=== PATIENT | male | born 1935 | race Caucasian/White ===

== ENCOUNTER 2017-11-22 09:31 | Emergency (ER) | payer OTHER ==
[~2017-11-22] VITALS: Ht 162.6 cm; Wt 65.3 kg
[~2017-11-22 09:31] MED LIST: ALBUTEROL2.5 MG/3 M IH; AMMONIUM LACTA225 GM TP; ASPIRIN EC325 M1 PO; CARVEDILOL6.25 MG; CELEXA 10 MG TA10 MG PO; COLACE100 MG PO; FOLIC ACID1 MG PO; KEFLEX500 MG PO; METHADONE HCL 110 M1 PO; NEURONTIN 300300 M1 PO; OMEPRAZOLE 20 M20 MG PO; SIMVASTATIN10 MG PO; VENTOLIN HFA 1818 GM INH
[2017-11-22] MEDS ORDERED: ZOLOFT50 MG PO (09:47)
[2017-11-22] MEDS ORDERED: FLOMAX0.4 MG PO (09:47)
[2017-11-22] MEDS ORDERED: HYDROCODONE-AP1 EAC6 PO (09:47)
[2017-11-22] MEDS ORDERED: DOXYCYCLINE 10100 MG PO (09:47)
[2017-11-22] MEDS ORDERED: SANTYL OINTMENT30 G1 TOP (09:48)
[2017-11-22] MEDS ORDERED: PROSCAR 5MG TABL5 MG PO (09:48)
[2017-11-22] MEDS ORDERED: PULMICORT0.5 MG/22 INH (09:49)
[2017-11-22] MEDS ORDERED: MEPILEX1 EACH TOP (09:49)
[2017-11-22] MEDS ORDERED: ERGOCALCIF50000 UNIT PO (09:50)
[2017-11-22] MEDS ORDERED: UNICOMPLEX M TA1 TA1 PO (09:50)
[2017-11-22] MEDS ORDERED: ACETAMINOPHEN325 M3 PO (09:50)
[2017-11-22] MEDS ORDERED: LASIX 20 MG TAB20 MG PO (09:51)
[2017-11-22] MEDS ORDERED: AMLODIPINE BESY10 MG PO (09:51)
[2017-11-22] MEDS ORDERED: MIRALAX17 GM PO (09:51)
[2017-11-22 09:55] LABS: ABSOLUTE BASOPHILS 0.1 thou/uL (0.0-0.2); ABSOLUTE EOSINOPHILS 0.3 thou/uL (0.0-0.7); ABSOLUTE LYMPHOCYTES 1.8 thou/uL (0.8-5.3); ABSOLUTE MONOCYTES 0.6 thou/uL (0.0-1.2); ABSOLUTE NEUTROPHILS 3.8 thou/uL (1.6-8.1); BASOPHILS 0.8 %; EOSINOPHILS 4.3 %; HEMATOCRIT 32.3 % (42.0-52.0); HEMOGLOBIN 10.6 gm/dL (14.0-18.0); LYMPHOCYTES 27.6 %; MCH 29.4 pg (26.0-34.0); MCV 89.3 fL (80.0-100.0); MONOCYTES 8.7 %; MPV 6.4 fl. (7.2-11.1); NUCLEATED RBCS 0 /100WBC; PLATELET COUNT* 236 thou/uL (150-400); POLYS 58.6 %; RBC 3.61 mil/uL (4.50-6.00); RDW-CV 14.6 % (10.5-14.5); WBC 6.4 thou/uL (4.0-11.0)
[2017-11-22 10:02] LABS: POC CA IONIZED 3.7 mg/dL (4.5-5.3); POC CREATININE 1.1 mg/dL (0.6-1.3); POC HEMOGLOBIN 10.5 g/dL (12.0-17.0); POC POTASSIUM 5.6 mmol/L (3.5-4.9)
[2017-11-22 10:09] LABS: ANION GAP 8 mmol/L (7-16); BUN 24 mg/dL (7-18); CALCIUM 8.7 mg/dL (8.5-10.1); CHLORIDE 100 mmol/L (98-107); CO2 29 mmol/L (21-32); CREATININE 1.3 mg/dL (0.6-1.3); GLUCOSE 111 mg/dL (70-99); POTASSIUM 4.7 mmol/L (3.5-5.1); SODIUM 137 mmol/L (136-145)
[2017-11-22 10:19] LABS: ALBUMIN 3.2 g/dL (3.4-5.0); ALKALINE PHOSPHATASE 75 U/L (46-116); SGOT 27 U/L (15-37); SGPT 16 U/L (30-65); TOTAL BILIRUBIN 0.4 mg/dL (<0.1-1.0); TOTAL PROTEIN 7.5 g/dL (6.4-8.2); TROPONIN-I LEVEL <0.06 ng/mL (<0.06)
[2017-11-22 10:45] LABS: APTT 25.4 Seconds (25.0-31.3); INR 1.1; PROTIME 10.8 Seconds (9.20-11.50)
[2017-11-22 13:18] VITALS: BP 113/52
--- NOTE | 2017-11-23 13:37 | EKG ---
[place] [address] ELECTROCARDIOGRAM REPORT Name: TYRESE BARNEY Room: [facility]#: [id number] Admission: 11/22/17 Attend Phys: Discharge: 11/22/17 Date of : 33 Report #: [id number] THIS REPORT FOR: //name// [facility] ED Test Date: 2017-11-22 Test Time: 10:06:20 Pat Name: TYRESE BARNEY Department: Room: Gender: M [employer] Equipment Operator: HANDY : 1935 Requested By: Anthony Jeffers Order Number: [id number] MD: Bryan Alvarez Measurements Intervals [place] Rate: 81 P: 6 NM: 116 QRS: -9 QRSD: 132 T: 19 QT: 427 QTc: 496 Interpretive Statements Sinus rhythm Borderline short NM interval Right bundle branch block Baseline wander in lead(s) V2,V3,V4,V6 Compared to ECG 07/19/2013 17:44:07 no change Electronically Signed On 11-23-2017 13:37:15 [employer] by Bryan Alvarez [email or web address] <ELECTRONICALLY SIGNED> By: Bryan Alvarez MD, [facility] 11/23/17 1337 [id number] Bryan Alvarez MD, [facility] /EPI
== END 2017-11-22 13:19 | disposition short-term general hospital (02) ==
LOC: M.ERS 09:31
PROVIDERS: Emergency Medicine Emergency Medical Services
DX: G40.89 Other seizures (principal); I62.03 Nontraumatic chronic subdural hemorrhage; I10 Essential (primary) hypertension; K21.9 Gastro-esophageal reflux disease without esophagitis; M19.90 Unspecified osteoarthritis, unspecified site; E11.9 Type 2 diabetes mellitus without complications; Z98.890 Other specified postprocedural states